=== PATIENT | female | born 1980 | race Caucasian/White ===

== ENCOUNTER 2017-12-01 20:35 | Emergency (ER) | payer OTHER ==
[~2017-12-01] VITALS: Ht 172.7 cm; Wt 68.0 kg
[2017-12-01 20:36] VITALS: BP 138/84
[2017-12-01] MEDS ORDERED: TRAZODONE HCL100 MG PO (20:43)
[2017-12-01] MEDS ORDERED: IBUPROFEN 200200 M1 PO (20:43)
[2017-12-01] MEDS ORDERED: TYLENOL EXTRA500 MG PO (20:43)
[2017-12-01] MEDS ORDERED: NORCO 5-325 TA1 EACH PO (20:58)
== END 2017-12-01 21:37 | disposition home or self-care (01) ==
LOC: ER 20:35
DX: K02.9 Dental caries, unspecified (principal); F17.210 Nicotine dependence, cigarettes, uncomplicated; Z88.2 Allergy status to sulfonamides; Z88.8 Allergy status to other drugs, medicaments and biological substances